=== PATIENT | male | born 1995 | race African-American/Black ===

== ENCOUNTER 2019-02-11 15:19 | Emergency (ER) | payer MEDICAID, OTHER ==
[~2019-02-11] VITALS: Ht 182.9 cm; Wt 68.0 kg
[2019-02-11 15:54] VITALS: BP 138/71
== END 2019-02-11 18:27 | disposition home or self-care (01) ==
LOC: ER 15:19
DX: K64.4 Residual hemorrhoidal skin tags (principal)
CPT/HCPCS: 99282